=== PATIENT | female | born 1950 | race Caucasian/White ===

== ENCOUNTER 2021-05-31 22:21 | Inpatient (IN) | payer MEDICARE, OTHER ==
[~2021-05-31] VITALS: Ht 170.2 cm; Wt 65.3 kg
[2021-05-31 22:22] VITALS: BP 155/82
[2021-05-31] MEDS ORDERED: LEVO-T25 MCG PO (22:29)
[2021-05-31] MEDS ORDERED: SINEMET 10-1001 EAC1 PO (22:29)
[2021-05-31] MEDS ORDERED: CARBIDOPA-LEVO1 EAC1 PO (22:30)
[2021-05-31 22:58] LABS: ABSOLUTE LYMPHOCYTES 0.8 thou/uL (0.8-5.3); ABSOLUTE MONOCYTES 0.6 thou/uL (0.0-1.2); ABSOLUTE NEUTROPHILS 3.1 thou/uL (1.6-8.1); BASOPHILS 0.9 %; EOSINOPHILS 0.9 %; HEMATOCRIT 41.1 % (37.0-47.0); HEMOGLOBIN 13.4 gm/dL (12.0-15.0); LYMPHOCYTES 17.9 %; MCH 31.7 pg (26.0-34.0); MCHC 32.7 g/dL (28.0-37.0); MCV 97.2 fL (80.0-100.0); MONOCYTES 12.5 %; MPV 7.3 fl. (7.2-11.1); NUCLEATED RBCS 0 /100WBC; PLATELET COUNT* 265 thou/uL (150-400); POLYS 67.8 %; RBC 4.23 mil/uL (4.20-5.00); RDW-CV 13.1 % (10.5-14.5); WBC 4.6 thou/uL (4.0-11.0)
[2021-05-31 23:00] LABS: CALCIUM 8.9 mg/dL (8.5-10.1); CREATININE 0.5 mg/dL (0.6-1.3); POTASSIUM 3.7 mmol/L (3.5-5.1)
[2021-05-31 23:05] LABS: ALBUMIN 3.6 g/dL (3.4-5.0); TOTAL BILIRUBIN 0.3 mg/dL (<0.1-1.0); TOTAL PROTEIN 6.6 g/dL (6.4-8.2)
[2021-06-01 01:18] LABS: URINE BILIRUBIN NEGATIVE (Negative); URINE BLOOD NEGATIVE (Negative); URINE CLARITY CLEAR; URINE COLOR STRAW; URINE GLUCOSE-RANDOM NEGATIVE (Negative); URINE KETONES NEGATIVE (Negative); URINE LEUKOCYTES-REFLEX 3+ (Negative); URINE NITRITE-REFLEX POSITIVE (Negative); URINE PROTEIN NEGATIVE (Negative); URINE UROBILINOGEN 0.2 E.U./dl (0.2-1.0)
[2021-06-01 02:07] LABS: CASTS None Seen /LPF (None Seen); SQUAMOUS >10 Many /LPF (0-3)
[2021-06-01 02:08] LABS: URINE RBC 3-10 Few /HPF (0-2); URINE WBC-REFLEX 6-15 Few /HPF (0-5)
[2021-06-01 02:09] LABS: BACTERIA-REFLEX >30 Many /HPF (None Seen); CRYSTALS None Seen /LPF (None Seen)
--- NOTE | 2021-06-01 02:30 | NUR ---
PT FOF IN SITTING POSITION AT THE FOOT OF THE STRETCHER DR BERNSTEIN ASSESSED PT NO INJURY NOTED VSS PT MOVED CLOSER TO THE DESK FOR OBSERVATION
[2021-06-01 06:07] VITALS: BP 166/89
--- NOTE | 2021-06-01 09:40 | EKG ---
[place] [address] ELECTROCARDIOGRAM REPORT Name: ALLYJANES N Room: [place] [address] ADM IN [facility].#: [id number] Admission: 06/01/21 Attend Phys: Heath Deshpande Discharge: Date of : 54 Date of Service: 05/31/21 2337 Report #: [id number] THIS REPORT FOR: //name// [facility] ED Test Date: 2021-05-31 Test Time: 23:37:40 Pat Name: JANES CANALES Department: Room: [place] [address] Gender: F Wheel Borer: LYNETTE : 1950 Requested By: Heath Deshpande Order Number: [id number] Aspen MD: Matty Cheek Measurements Intervals Mercer Rate: 89 P: 33 OH: 154 QRS: -31 QRSD: 95 T: 15 QT: 413 QTc: 503 Interpretive Statements Sinus rhythm Left ventricular hypertrophy Minor nonspecific ST-T alteration Prolonged QT interval Baseline wander in lead(s) V2,V3 No previous ECG available for comparison Electronically Signed On 06-01-2021 9:40:22 [facility] by Matty Cheek [email or web address] <ELECTRONICALLY SIGNED> By: Matty Cheek MD, [facility] 06/01/21 0940 2337 [id number] Matty Cheek MD, [facility] /EPI
[2021-06-01 10:21] VITALS: BP 184/100
--- NOTE | 2021-06-01 10:50 | NUR ---
PT INCONTINENT OF BOWEL, HAS HAD SEVERAL BM'S AND CLEANED UP AFTERWARD. PT CURRENTLY ON CLEAN DEBBIE AND WITHIN SIGHT OF NURSES STATION
--- NOTE | 2021-06-01 11:34 | NUR ---
seizure pads placed on the bedside rails due to the patient moving and sticking legs through the rails to prevent injury. Will continue to monitor.
--- NOTE | 2021-06-01 11:51 | NUR ---
PT INCONTINENT OF BOWEL AGAIN, 3 RN'S WERE ROLLING THE PATIENT TO CLEAN AND CHANGE HER, SHE BEGAN HITTING THE NURSES AND YELLING. SEIZURE PADS HAVE ALREADY BEEN PLACED ON THE SIDE RAILS, THE PATIENT WAS CLEANED UP, A CLEAN DEBBIE PAD WAS PLACED UNDERNEATH OF THE PATIENT AND MEDICATION HAS BEEN ORDERED FOR THE PATIENT. SHE IS CONNECTED TO ALL MONITORS, ON ROOM AIR, ABX INFUSING AND THE PATIENT CONTINUES TO BE CONFUSED. WILL CONTINUE TO MONITOR.
--- NOTE | 2021-06-01 11:59 | NUR ---
PT REACHING ABOVE HER HEAD AND GRABBING CORDS HANGING ON THE WALL. PT'S BED WAS MOVED AWAY FROM THE WALL, PT COVERED WITH BLANKET AND IS WITHIN SIGHT OF THE NURSES STATION
--- NOTE | 2021-06-01 13:58 | NUR ---
Attempted to assess pt x2 - however pt is very confused secondary to uti. Pt came from an Independent Living Apartment - [place]. Will attempt to see if pt is less confused tommorow and can complete assessment. CM to continue to follow for discharge planning.
[2021-06-01 22:00] VITALS: BP 148/88; BP 170/90
--- NOTE | 2021-06-01 23:49 | NUR ---
PT ADMIT TO ROOM 220 AT 2200. PT SEDATED, NONVERBAL. R HAND SKIN TEAR WITH SM BANDAID ABLE TO REMOVE AND PICTURE. LARGE BANDAID TYPE DRSG TO L FOREARM UNABLE TO REMOVE WITHOUT TEARING OFF SKIN. SKIN IS THIN, FRAGILE AND BRUSED. [employer] COUNTER PERSON TRACING SR. ON RA. INCONT OF URINE.
[2021-06-02 00:11] VITALS: BP 154/95
[2021-06-02 04:46] VITALS: BP 157/80
[2021-06-02 08:00] VITALS: BP 158/91
--- NOTE | 2021-06-02 11:31 | NUR ---
PT SEDATED THIS AM UPON INITIAL ASSESSMENT. PT ALERT AND ORIENTED X 4 NOW. ANSWERS QUESTIONS APPROPORAITELY. MRI QUESTIONAIRE FILLED OUT AND PLACED IN FRONT OF CHART. DENIES ANY PAIN OR SHORTNESS OF BREATH, WILL CONTINUE PLAN OF CARE.
[2021-06-02 12:32] VITALS: BP 159/85
--- NOTE | 2021-06-02 14:54 | NUR ---
WOUND CARE: SEEN TO ADDRESS SKIN TEAR TO LEFT FORARM. NURSING REPORTS THEY ARE UNABLE TO REMOVE BANDAID APPLIED IN ED. NO STING MEDICAL ADHESIVE REMOVER USED TO LOOSEN BANDAID AND IT WAS EASILY LIFTED OFF. SMALL SKIN TEAR NOTED MEASURING 1.0 X 0.2 X 0.1 CM. EDGES WERE WELL APROXIMATED AND NO DRAINAGE ON BANDAID OR FROM WOUND NOTED. MARATHON LIQUID BANDAGE APPLIED TO SEAL WOUND. WOUND LEFT OPENT TO AIR. PT EDUCATION ON WOUND PREVENTION AND HEALING ATTEMPTED BUT WILL NEED REINFORCMENT. DENIES OTHER NEEDS AT THIS TIME.
--- NOTE | 2021-06-02 15:32 | NUR ---
PLAN OF CARE: CM ATTEMPTED TO ASSESS THE PT. HOWEVER PT ONLY ALERT TO SELF AT THIS TIME. CM ATTEMPTED TO CONTACT THE [facility] SR LIVING TO DISCUSS PT'S MOBILITY AND COGNITION PRIOR TO ADMIT. [facility] STAFF INFORMS THAT THE PATIENT 'IS HER OWN PERSON AND ABLE TO MAKE HER OWN DECISIONS. PP DOES NOT HAVE ANY CONTACT INFO ON FILE JUST LIST HER DTR'S NAME AND EMAIL ADDRESS'. CM TO F/U WITH THE [facility] TYPECASTING MACHINE OPERATOR TO DISCUSS ABILITY TO ASSIST IN GETTING IN CONTACT WITH THE PT'S DTR. CM WILL REMAIN AVAILABLE TO ASSIST AND FOLLOW NEEDED.
[2021-06-02 16:27] VITALS: BP 163/88
[2021-06-02 20:00] VITALS: BP 149/85
[2021-06-03 00:35] VITALS: BP 167/95
--- NOTE | 2021-06-03 06:23 | NUR ---
PT ALERT ORIENTED. RN TOLD PT SHE WAS DOING MUCH BETTER THAN THE PREVIOUS NIGHT. PT STATED IM NOT GOOD WITH NIGHTS. PT GOT ANXIOUS LATER INTO THE NIGHT AND STATED I'M WALKING OUT OF HERE AND GOING HOME. PT WAS REDIRECTED TO TALK ABOUT HER CARE. MED/SURG STATUS. PT WAS HAVING PAIN IN L ARM FROM PREVIOUS FALL. ORDER OBTAINED FOR PAIN MEDICATION. PT SLEEPING QUIETLY. PT REQUESTING PILLS CRUSHED IN PUDDING.
[2021-06-03 08:00] VITALS: BP 163/95
--- NOTE | 2021-06-03 09:55 | NUR ---
CM ASSESSMENT: CM SPOKE TO THE PT TO COMPLETE CM ASSESSMENT. PT IS A&0 TODAY. PT INFORMS THAT SHE RESIDES AT THE [facility] IN AN INDEPENDENT LIVING APARTMENT. PT USES 0 DME AT BASELINE, BUT INFORMS THAT SHE OWNS A WALKER AND A CANE. PT INFORMS THAT SHE HAS [employer] SO SHE KEEPS THE CANE AND WALKER IN-CASE SHE NEEDS THEM. PT INFORMS THAT SHE IS CURRENTLY ON-SERVICE WITH HH FOR PHYSICAL THERAPY, BUT COULD NOT RECALL THE NAME. PT HAS 0 HX OF SNF. PT WILL BENEFIT FROM HAVING HH AT D/C. CM AWAITING A CALL BACK FROM THE [facility] TO SEE IF THEY MIGHT KNOW WHAT HH THE PT IS CURRENTLY USING. CM WILL REMAIN AVAILABLE TO ASSIST AND FOLLOW NEEDED.
[2021-06-03 16:00] VITALS: BP 134/81
[2021-06-03 17:26] LABS: CALCIUM 8.8 mg/dL (8.5-10.1); CREATININE 0.5 mg/dL (0.6-1.3); POTASSIUM 3.5 mmol/L (3.5-5.1)
[2021-06-03 17:29] LABS: MAGNESIUM 1.5 mg/dL (1.8-2.4); PHOSPHORUS* 3.6 mg/dL (2.5-4.9)
[2021-06-03 20:00] VITALS: BP 166/92
[2021-06-04 00:11] VITALS: BP 174/92
--- NOTE | 2021-06-04 02:48 | NUR ---
PT IMPULSIVE. OOB THREE TIMES WITHOUT ASSIST. BED ALARM ON. FALL PRECAUTIONS IN PLACE. MED/SURG STATUS.
[2021-06-04 08:00] VITALS: BP 146/88
[2021-06-04] MEDS ORDERED: DOXYCYCLINE 10100 M2 PO (09:33)
[2021-06-04 11:58] VITALS: BP 146/88
--- NOTE | 2021-06-04 13:26 | NUR ---
PLAN OF CARE: PLAN FOR THE PT TO D/C HOME TODAY WITH HH. CHICO SPOKE TO THE STAFF AT THE [facility] AND THEY CONFIRM THAT THE PT IS ABLE TO RETURN TO HER APARTMENT AND NO [id number] REPORT NEEDS TO BE GIVEN THE PT RESIDES IN AN INDEPENDENT APARTMENT. PLEASE SEND ALL PAPERWORK WITH THE PT AND THE FACILITY WILL ARRANGE TO HAVE HH RESUMED FOR THE PT. PER THE [facility] STAFF THE PT'S DTR DOES NOT WISH TO BE CONTACTED. CHICO SPOKE TO THE PT TO DISCUSS THIS AND SHE INDICATES THAT THIS IS NOT TRUE, BUT SHE WAS NOT ABLE TO GET HER TO CALL HER BACK WELL. [facility] CONFIRMED WITH THE PT THAT W/C VAN TRASPORTATION NEEDED TO BE ARRANGED. W/C VAN TRANSPORTATION BACK TO THE [facility] WAS ARRANGED WITH [facility] FOR [id number]. CHICO INFORMED THE RN IN-CHARGE OF THE PT. CM WILL REMAIN AVAILABLE TO ASSIST AND FOLLOW NEEDED. [facility] PHONE: [phone]
--- NOTE | 2021-06-04 15:50 | NUR ---
PT ALERT TO SELF, TIME, AND SOMEWHAT OF SITUATION. IV REMOVED SUCCESSFULLY. PT WITH ALL BELONGINGS SHE WAS ADMITTED WITH. MAGNESIUM REPLACED PRIOR TO LEAVING AND RECHECKED AND CAME BACK AT 2.1. PT GIVEN DISCHARGE PAPERWORK AND VERBALIZED UNDERSTANDING OF INSTRUCTIONS AND MEDICATIONS. PT WHEELED OFF UNIT AT 1549.
== END 2021-06-04 15:50 | disposition home health service (06) | DRG 689 ==
LOC: M.ERS 22:21 → M.TBA-ER 06-01 02:29 → M.2W 06-01 02:29
PROVIDERS: Emergency Medicine; Internal Medicine; ADMIT Internal Medicine; ATTEND Internal Medicine
DX: N30.01 Acute cystitis with hematuria (principal); G93.41 Metabolic encephalopathy; M48.54XA Collapsed vertebra, not elsewhere classified, thoracic region, initial encounter for fracture; R65.10 Systemic inflammatory response syndrome (SIRS) of non-infectious origin without acute organ dysfunction; Z20.822 Contact with and (suspected) exposure to COVID-19; I10 Essential (primary) hypertension; S60.221A Contusion of right hand, initial encounter; E03.9 Hypothyroidism, unspecified; G20 Parkinson's disease; S00.93XA Contusion of unspecified part of head, initial encounter; W18.39XA Other fall on same level, initial encounter; M47.892 Other spondylosis, cervical region; M19.041 Primary osteoarthritis, right hand; M43.16 Spondylolisthesis, lumbar region; B96.89 Other specified bacterial agents as the cause of diseases classified elsewhere; Z88.8 Allergy status to other drugs, medicaments and biological substances; Y93.89 Activity, other specified; Y92.89 Other specified places as the place of occurrence of the external cause; Y99.8 Other external cause status; Z28.21 Immunization not carried out because of patient refusal